=== PATIENT | male | born 1970 | race Two or more races ===

== ENCOUNTER 2020-09-30 16:35 | Emergency (ER) | payer OTHER, SELFPAY ==
--- NOTE | ~2020-09-30 | CT_ITS ---
EXAMINATION: CT ABDOMEN AND PELVIS WITHOUT CONTRAST CLINICAL INFORMATION: Left flank pain. Hematuria. COVID positive COMPARISON: None. TECHNIQUE: Multidetector volumetric imaging was performed from the lung bases through the pubic symphysis. Sagittal and coronal reformatted images were obtained on the technologist workstation. This CT examination was performed using dose optimization techniques as appropriate, variously including the following: *Automated exposure control *Adjustment of mA and/or kV according to patient size (this includes techniques or standardized protocols for targeted exams where dose is matched to indication/reason for exam; i.e. extremities or head) *Use of iterative reconstruction technique FINDINGS: The lack of intravenous contrast limits evaluation of the solid visceral organs including the liver, spleen, pancreas, and kidneys. LUNG BASES: The visualized lung bases are unremarkable. LIVER, GALLBLADDER, AND BILIARY TREE: Limited non-contrast evaluation is normal. No gross focal hepatic lesion. Normal liver size and contour. No gross biliary ductal dilation. The gallbladder is unremarkable with no evidence of radiopaque gallstones, gallbladder wall thickening, or obvious pericholecystic inflammatory changes. PANCREAS: Limited non-contrast evaluation is normal. No alex-pancreatic fluid. SPLEEN: Limited non-contrast evaluation is normal. ADRENAL GLANDS: Normal; no adrenal mass. KIDNEYS AND URETERS: There is a nonobstructing 2 to 3 mm right lower pole calculus. There is a punctate 1 mm nonobstructing left mid renal calculus in image 26. There is mild hydroureteronephrosis followed to a 5 mm obstructing stone in the left proximal ureter in image 38/76 at the level of the L4 vertebral body. The calculus is visible on the document control clerk radiograph suggesting KUBs could utilized for outpatient urologic follow-up. GASTROINTESTINAL TRACT: Small bowel and colon are non-dilated. No bowel wall thickening. No pericolonic inflammatory changes to suggest colitis or diverticulitis. ABDOMINAL WALL: No hernia seen. LYMPH NODES: No pathologically enlarged lymph nodes in the abdomen or pelvis. VASCULAR: Normal caliber abdominal aorta. BLADDER: Unremarkable. PELVIC VISCERA: There are dystrophic calcifications in the prostate. OSSEOUS STRUCTURES: There is retrolisthesis of L5 on S1. No acute or suspicious osseous abnormality. Degenerative changes of the sacroiliac joints. CT/CT abdomen pelvis wo con IMPRESSION: 5 mm obstructing left proximal ureteral calculus results in mild right hydroureteronephrosis. Additional nonobstructing bilateral renal calculi are present as well.
[2020-09-30 17:11] VITALS: BP 123/75; PULSE 65; RESP 18; TEMP 36.9; O2SAT 97; BMI 19.8
[2020-09-30 17:48] LABS: Glucose Urine UA NEG (NEG); Leukocyte Esterase Urine NEG (NEG); Nitrite Urine NEG (NEG); Urine Blood NEG (NEG); Urine Ketones NEG (NEG); Urine Protein NEG (NEG-TRACE)
[2020-09-30 17:51] LABS: Appearance Urine CLEAR; Color Urine YELLOW
[2020-09-30 17:57] LABS: Bacteria Urine 1+ /LPF; RBC Urine 0-2 /HPF (0); Squamous Epithelial Cell Urine 1+ /LPF
--- NOTE | 2020-09-30 18:03 | ED.GENADULT ---
HPI - General Adult General Chief complaint: General Medical Stated complaint: covid+ Time Seen by Provider: 09/30/20 17:43 Source: patient Mode of arrival: ambulatory Limitations: no limitations History of Present Illness HPI narrative: 50-year-old male diagnosed COVID positive, with no significant past medical history presents with several days of left-sided flank pain. 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 He states the pain is sharp and aching, intermittent, and sometimes takes his breath away. He cannot get comfortable and feels best curled over. He has had intermittent fevers and chills, and is unsure if it is because of the left-sided flank pain or his COVID positive diagnosis. He does not report any palpitations, shortness of breath, abdominal distention, edema, incontinence, or diaphoresis. Onset (ago): week(s) (1) Location: left (Flank) Radiation: back Severity: moderate Severity scale (1-10): 7 Quality: stabbing and aching Pain Consistency: intermittent Relieving factors: none Exacerbating factors: movement Associated symptoms: fever/chills and malaise Treatments prior to arrival: other (Tylenol) Related Data Previous Rx's Medication Instructions Recorded levofloxacin 750 mg PO DAILY 5 Days #5 tab 09/30/20 oxycodone 5 mg PO Q6H PRN #10 tab 09/30/20 prednisone 20 mg PO DAILY 5 Days #5 tab 09/30/20 tamsulosin [Flomax] 0.4 mg PO DAILY #30 cap 09/30/20 Allergies Allergy/AdvReac Type Severity Reaction Status Date / Time No Known Allergies Allergy Unverified 04/06/20 16:13 Review of Systems Review of Systems: Constitutional: Positive Fever, positive Chills ENT/Mouth: No sore throat Eyes: No Eye Pain, No Swelling, No Redness Cardiovascular: No Chest Pain, No SOB Respiratory: No Cough, No Sputum, No Wheezing Gastrointestinal: positive Nausea, no Vomiting, No Diarrhea, positive abdominal pain Genitourinary: No Dysuria, no urinary frequency, positive Hematuria, positive Flank Pain, no hesitancy Musculoskeletal: No joint pain, No Myalgias Skin: No Skin Lesions, No rash Neuro: No Weakness, No Numbness, No Headache Psych: No Anxiety/Panic, No Depression Heme/Lymph: No Bruising, No Lymphadenopathy Endocrine: No Polyuria, No Polydipsia Yes all other systems are reviewed and are negative [facility] Past Medical History Attestation statement: The following information was validated with the patient. Source: old records reviewed Medical History COVID-19 Social History Social History Alcohol intake: never Smoking Status: Never smoker Use of substances other than those prescribed or required for medical reasons: Yes Substance Use Type: Marijuana Substance Use Frequency: Occasionally Advance Directives: No Advance Directives Information Provided: No Physical Exam Vital Signs: Vital Signs: Last Vital Signs Temp 97.9 F 09/30/20 19:20 Pulse 66 09/30/20 19:20 Resp 18 09/30/20 19:20 BP 144/90 H 09/30/20 19:20 Pulse Ox 100 09/30/20 19:20 Body Mass Index 19.8 Appearance: Alert. Oriented X3. Moderate distress. Eyes: Pupils equal, round and reactive to light. EOMI, sclera nonicteric ENT: Pharynx normal. Trachea midline, moist mucous membranes. Neck: Normal inspection. Neck supple. No JVD CVS: Normal heart rate and rhythm. Pulses normal. Chest wall tenderness to palpation on the left side. Respiratory: No respiratory distress. Lung sounds clear to auscultation all lobes. Abdomen: Soft and left lower quadrant abdominal tenderness, positive left-sided CVA tenderness. Skin: Skin warm and dry. Normal skin color. Normal skin turgor. Extremities: No lower extremity edema. Moves all extremities against resistance. Gait well balanced well coordinated. Neuro: No motor deficit. No sensory deficit. Cranial nerves 2-12 intact. No focal neural deficits. Course Course Course Narrative: 50-year-old male tested COVID positive presents with left-sided flank pain and hematuria for approximately [address] scan of abdomen and pelvis, as he does have some left-sided chest pain we will rule out ACS. Order CBC, Chem 7, and urinalysis. CT scan positive for bilateral renal stones, left-sided obstruction of a 5 mm stone with hydronephrosis. Urine bacteria is positive there are no nitrites or leukocyte esterase however based on patient's presentation I am concerned about infected stone. Will reach out to Urology. Discussing with Urology at 7:[address] scan, plan of care is to treat with p.o. antibiotics, opioids and have patient follow-up in the office on Friday. Consultations Consultation #1: elvi Time: 19:59 Medical Decision Making Differential Diagnosis Differential Diagnosis: Kidney stones, pyelonephritis, ACS, acute abdomen Medical Records Medical records reviewed: Yes I reviewed the patient's medical records. Lab Data Lab results reviewed: Yes I reviewed the patient's lab results. Result diagrams: 09/30/20 19:08 09/30/20 19:08 Labs: Lab Results 09/30/20 09/30/20 09/30/20 Range/Units 17:34 19:08 19:08 WBC 11.5 H (4.8-10.8) X10*3/uL RBC 4.46 L (4.60-5.80) X10*6/uL Hgb 13.9 L (14.0-18.0) g/dl Hct 40.3 L (42-52) % MCV 90.4 (80-98) fL MCH 31.2 (27.0-33.0) pg MCHC 34.5 (31.0-36.0) g/dl RDW 12.2 (11.0-16.0) % Plt Count 218 (160-400) X10*3/uL MPV 10.3 (9.4-12.4) fL Immature Gran % (Auto) 0.2 (0.0-0.4) % Neut % (Auto) 73.5 H (45-73) % Lymph % (Auto) 19.4 L (20-40) % [place] % (Auto) 5.6 (2-11) % Eos % (Auto) 1.0 (0-4) % Baso % (Auto) 0.3 (0-2) % Lymph # (Auto) 2.2 (1.2-4.9) X10*3/uL [place] # (Auto) 0.7 (0.1-1.2) X10*3/uL Eos # (Auto) 0.1 (0.0-0.4) X10*3/uL Baso # (Auto) 0.0 (0.0-0.2) X10*3/uL Abs Immat Gran (auto) 0.02 (0.00-0.03) X10*3/uL Absolute Neuts (auto) 8.5 H (2.0-8.3) X10*3/uL Absolute Nucleated RBC 0.000 (0.0-0.012) X10*3/uL Nucleated RBC % (auto) 0.0 (0.0-0.2) /100WBC PT 11.4 (10.8-13.0) SEC INR 1.0 (0.9-1.1) APTT 31.8 (24.1-38.0) SEC Sodium (135-145) mmol/L Potassium (3.3-5.1) mmol/L Chloride (96-108) mmol/L Carbon Dioxide (22-29) mmol/L Anion Gap (12-20) BUN (9-16) mg/dL Creatinine (0.5-1.4) mg/dL Estim Creat Clear Calc Estimated GFR Random Glucose (60-115) mg/dL Calcium (8.4-10.2) mg/dL Total Bilirubin (0.0-1.0) mg/dL Direct Bilirubin (0.0-0.5) mg/dL AST (5-37) U/L ALT (0-40) U/L Alkaline Phosphatase (39-117) U/L Troponin I High Sens (<3.5-35.0) ng/L Total Protein (6.5-8.0) g/dL Albumin (3.5-5.0) g/dL Lipase (8-78) U/L Urine Color YELLOW Urine Appearance CLEAR Urine pH 8.0 (5.0-8.0) Ur Specific [place] 1.020 (1.005-1.025) Urine Protein NEG (NEG-TRACE) MG/DL Urine Glucose (UA) NEG (NEG) MG/DL Urine Ketones NEG (NEG) MG/DL Urine Blood NEG (NEG) Urine Nitrite NEG (NEG) Ur Leukocyte Esterase NEG (NEG) Urine RBC 0-2 (0) /HPF Urine WBC 1-4 (0-4) /HPF Ur Squamous Epith Cells 1+ /LPF Urine Bacteria 1+ /LPF 09/30/20 09/30/20 Range/Units 19:08 19:08 WBC (4.8-10.8) X10*3/uL RBC (4.60-5.80) X10*6/uL Hgb (14.0-18.0) g/dl Hct (42-52) % MCV (80-98) fL MCH (27.0-33.0) pg MCHC (31.0-36.0) g/dl RDW (11.0-16.0) % Plt Count (160-400) X10*3/uL MPV (9.4-12.4) fL Immature Gran % (Auto) (0.0-0.4) % Neut % (Auto) (45-73) % Lymph % (Auto) (20-40) % [place] % (Auto) (2-11) % Eos % (Auto) (0-4) % Baso % (Auto) (0-2) % Lymph # (Auto) (1.2-4.9) X10*3/uL [place] # (Auto) (0.1-1.2) X10*3/uL Eos # (Auto) (0.0-0.4) X10*3/uL Baso # (Auto) (0.0-0.2) X10*3/uL Abs Immat Gran (auto) (0.00-0.03) X10*3/uL Absolute Neuts (auto) (2.0-8.3) X10*3/uL Absolute Nucleated RBC (0.0-0.012) X10*3/uL Nucleated RBC % (auto) (0.0-0.2) /100WBC PT (10.8-13.0) SEC INR (0.9-1.1) APTT (24.1-38.0) SEC Sodium 142 (135-145) mmol/L Potassium 4.5 (3.3-5.1) mmol/L Chloride 106 (96-108) mmol/L Carbon Dioxide 25 (22-29) mmol/L Anion Gap 16 (12-20) BUN 16 (9-16) mg/dL Creatinine 0.92 (0.5-1.4) mg/dL Estim Creat Clear Calc 73.3 Estimated GFR > 60 Random Glucose 99 (60-115) mg/dL Calcium 8.7 (8.4-10.2) mg/dL Total Bilirubin 0.7 (0.0-1.0) mg/dL Direct Bilirubin < 0.2 (0.0-0.5) mg/dL AST 17 (5-37) U/L ALT 7 (0-40) U/L Alkaline Phosphatase 72 (39-117) U/L Troponin I High Sens < 3.5 (<3.5-35.0) ng/L Total Protein 7.1 (6.5-8.0) g/dL Albumin 4.0 (3.5-5.0) g/dL Lipase 18 (8-78) U/L Urine Color Urine Appearance Urine pH (5.0-8.0) Ur Specific [place] (1.005-1.025) Urine Protein (NEG-TRACE) MG/DL Urine Glucose (UA) (NEG) MG/DL Urine Ketones (NEG) MG/DL Urine Blood (NEG) Urine Nitrite (NEG) Ur Leukocyte Esterase (NEG) Urine RBC (0) /HPF Urine WBC (0-4) /HPF Ur Squamous Epith Cells /LPF Urine Bacteria /LPF Imaging Data CT of abdomen and pelvis: Attestation: I personally reviewed and interpreted this imaging study as follows: Radiologist's impression: EXAMINATION: CT ABDOMEN AND PELVIS WITHOUT CONTRAST CLINICAL INFORMATION: Left flank pain. Hematuria. COVID positive COMPARISON: None. TECHNIQUE: Multidetector volumetric imaging was performed from the lung bases through the pubic symphysis. Sagittal and coronal reformatted images were obtained on the technologist workstation. This CT examination was performed using dose optimization techniques as appropriate, variously including the following: *Automated exposure control *Adjustment of mA and/or kV according to patient size (this includes techniques or standardized protocols for targeted exams where dose is matched to indication/reason for exam; i.e. extremities or head) *Use of iterative reconstruction technique FINDINGS: The lack of intravenous contrast limits evaluation of the solid visceral organs including the liver, spleen, pancreas, and kidneys. LUNG BASES: The visualized lung bases are unremarkable. LIVER, GALLBLADDER, AND BILIARY TREE: Limited non-contrast evaluation is normal. No gross focal hepatic lesion. Normal liver size and contour. No gross biliary ductal dilation. The gallbladder is unremarkable with no evidence of radiopaque gallstones, gallbladder wall thickening, or obvious pericholecystic inflammatory changes. PANCREAS: Limited non-contrast evaluation is normal. No alex-pancreatic fluid. SPLEEN: Limited non-contrast evaluation is normal. ADRENAL GLANDS: Normal; no adrenal mass. KIDNEYS AND URETERS: There is a nonobstructing 2 to 3 mm right lower pole calculus. There is a punctate 1 mm nonobstructing left mid renal calculus in image 26. There is mild hydroureteronephrosis followed to a 5 mm obstructing stone in the left proximal ureter in image 38/76 at the level of the L4 vertebral body. The calculus is visible on the water pollution control inspector radiograph suggesting KUBs could utilized for outpatient urologic follow-up. GASTROINTESTINAL TRACT: Small bowel and colon are non-dilated. No bowel wall thickening. No pericolonic inflammatory changes to suggest colitis or diverticulitis. ABDOMINAL WALL: No hernia seen. LYMPH NODES: No pathologically enlarged lymph nodes in the abdomen or pelvis. VASCULAR: Normal caliber abdominal aorta. BLADDER: Unremarkable. PELVIC VISCERA: There are dystrophic calcifications in the prostate. OSSEOUS STRUCTURES: There is retrolisthesis of L5 on S1. No acute or suspicious osseous abnormality. Degenerative changes of the sacroiliac joints. CT/CT abdomen pelvis wo con IMPRESSION: 5 mm obstructing left proximal ureteral calculus results in mild right hydroureteronephrosis. Additional nonobstructing bilateral renal calculi are present as well. ECG Data Attestation: I personally reviewed and interpreted this ECG as follows: Discharge Plan Discharge Clinical Impression: Kidney calculus, Hydronephrosis concurrent with and due to calculi of kidney and ureter, COVID-19 Patient Disposition: Home, Self-Care Instructions: Kidney Stones (ED), Narcotic Safety (ED), Hydronephrosis (ED), COVID-19 (Coronavirus Disease 2019) (ED) Additional Instructions: You were evaluated for left-sided flank pain. CT scan of the abdomen shows an obstructing stone to the left kidney with some hydronephrosis, which is swelling to the kidney. The right kidney does have some small kidney stones without obstruction. I am treating you with prednisone, Flomax, oxycodone and Levaquin. Prednisone is a steroid, it is used to decrease inflammation. Please take this for the next 5 days. I am treating you with Flomax, this medication opens the vessels to help kidney stones past. This medication can decrease blood pressure and cause dizziness. Use caution when changing positions. I am prescribing Levaquin this is an antibiotic. Please take this medication for the next 5 days. I am prescribing oxycodone, this medication is a narcotic and has high risk for addiction and abuse. Do not drive or operate machinery while taking this medication. This medication is constipating, use MiraLax and or Colace as needed for stool softening. Drink plenty of fluids. This medication can decrease reaction time, cause drowsiness, and increased risk for falls. Follow-up with urology on Friday, I discussed your case with Dr. Gtz and he is expecting her call. Thank you for choosing this emergency department for evaluation. Please follow-up with primary care physician as needed. Return to the emergency department for any new, concerning, or worsening symptoms. Prescriptions: New oxycodone 5 mg tablet 5 mg PO Q6H PRN (Reason: pain) Qty: 10 RF: 0 tamsulosin [Flomax] 0.4 mg capsule 0.4 mg PO DAILY Qty: 30 RF: 0 prednisone 20 mg tablet 20 mg PO DAILY 5 Days Qty: 5 RF: 0 levofloxacin 750 mg tablet 750 mg PO DAILY 5 Days Qty: 5 RF: 0 Referrals: Mahesh Gtz III, MD [Physician] - 2 days (Bilateral kidney stones) Interventions: ED Discharge Assessment Last Done: 09/30/20 20:51 Discharge Date/Time: 09/30/20 21:20
--- NOTE | 2020-09-30 18:35 | ECG_ITS ---
Test Reason : WEAKNESS Blood Pressure : / mmHG Vent. Rate : 066 BPM Atrial Rate : 066 BPM P-R Int : 160 ms QRS Dur : 076 ms QT Int : 394 ms P-R-T Axes : 072 027 036 degrees QTc Int : 413 ms Normal sinus rhythm Normal ECG When compared with ECG of 23-MAY-2012 14:56, No significant change was found Referred By: Lainey Jenkins Electronically Signed By:Grady Saleem
[2020-09-30] MEDS: Ketorolac Tromethamine 30 MG/ML VIAL IVPUSH (19:12)
[2020-09-30] MEDS: Morphine Sulfate 4 MG/ML CARTRIDGE IVPUSH (19:12)
[2020-09-30] MEDS: 0.9 % Sodium Chloride 1,000 ML 999 ML IVCONT (19:12)
[2020-09-30] MEDS: ondansetron HCL 4 MG/2 ML VIAL IVPUSH (19:13)
[2020-09-30 19:14] LABS: Basophils Percent Auto 0.3 % (0-2); Eosinophils Absolute Auto 0.1 X10*3/uL (0.0-0.4); Hematocrit 40.3 % (42-52); Hemoglobin 13.9 g/dl (14.0-18.0); Imm Gran Abs Auto 0.02 X10*3/uL (0.00-0.03); Imm Gran Pct Auto 0.2 % (0.0-0.4); Lymphocytes Absolute Auto 2.2 X10*3/uL (1.2-4.9); Lymphocytes Percent Auto 19.4 % (20-40); MANUAL DIFF FLAG NO; Mean Corpuscular HGB Conc 34.5 g/dl (31.0-36.0); Mean Corpuscular Hemoglobin 31.2 pg (27.0-33.0); Mean Corpuscular Volume 90.4 fL (80-98); Mean Platelet Volume 10.3 fL (9.4-12.4); Monocytes Absolute Auto 0.7 X10*3/uL (0.1-1.2); Monocytes Percent Auto 5.6 % (2-11); Neutrophils Absolute Auto 8.5 X10*3/uL (2.0-8.3); Neutrophils Percent Auto 73.5 % (45-73); Platelet Count 218 X10*3/uL (160-400); Red Blood Count 4.46 X10*6/uL (4.60-5.80); Red Cell Distribution Width 12.2 % (11.0-16.0); White Blood Count 11.5 X10*3/uL (4.8-10.8)
[2020-09-30 19:20] VITALS: BP 144/90; PULSE 66; RESP 18; TEMP 36.6; O2SAT 100
[2020-09-30 19:20] LABS: Prothrombin Time 11.4 SEC (10.8-13.0)
--- NOTE | 2020-09-30 19:21 | PC.NURSE ---
iv inserted, labs drawn, pt medicated per order
[2020-09-30 19:23] LABS: Partial Thromboplastin Time 31.8 SEC (24.1-38.0)
[2020-09-30 19:37] LABS: Troponin-I High Sensitivity < 3.5 ng/L (<3.5-35.0)
[2020-09-30 19:42] LABS: Alanine Aminotransferase 7 U/L (0-40); Alkaline Phosphatase 72 U/L (39-117); Anion Gap 16 (12-20); Aspartate Amino Transferase 17 U/L (5-37); Bilirubin Direct < 0.2 mg/dL (0.0-0.5); Bilirubin Total 0.7 mg/dL (0.0-1.0); Blood Urea Nitrogen 16 mg/dL (9-16); Calcium 8.7 mg/dL (8.4-10.2); Carbon Dioxide 25 mmol/L (22-29); Chloride 106 mmol/L (96-108); Creatinine Clr Calc Pharmacy 73.3; Estimated Glomerular Filt Rate > 60; Glucose Random 99 mg/dL (60-115); Lipase 18 U/L (8-78); Potassium 4.5 mmol/L (3.3-5.1); Sodium 142 mmol/L (135-145); Total Protein 7.1 g/dL (6.5-8.0)
[2020-09-30] MEDS: levoFLOXacin 750 MG TABLET PO (21:01)
[2020-09-30] MEDS: oxyCODONE HCl Immed Release 5 MG TABLET PO (21:01)
[2020-09-30] MEDS: predniSONE 20 MG TABLET PO (21:02)
[2020-09-30] MEDS: Tamsulosin HCL 0.4 MG CAPSULE PO (21:02)
--- NOTE | 2020-09-30 21:18 | PC.NURSE ---
patient medicated prior to discharge
== END 2020-09-30 21:20 | disposition home or self-care (01) ==
PROVIDERS: Nurse Practitioner Family; Emergency Provider Internal Medicine
DX: N13.2 Hydronephrosis with renal and ureteral calculous obstruction (principal); Z86.16 Personal history of COVID-19; F12.90 Cannabis use, unspecified, uncomplicated
CPT/HCPCS: 36415; 74176; 80048; 80076; 81001; 83690; 84484; 85025; 85610; 85730; 93005; 96361; 96374; 96375; 99284; J1885; J2270; J2405

== ENCOUNTER 2021-05-30 18:53 | Emergency (ER) | payer SELFPAY ==
--- NOTE | ~2021-05-30 | CT_ITS ---
EXAMINATION: CT ABDOMEN AND PELVIS WITHOUT CONTRAST CLINICAL INFORMATION: Left flank pain. COMPARISON: CT of the abdomen and pelvis done on 09/30/2020. TECHNIQUE: Multidetector volumetric imaging was performed from the superior aspect of the liver through the pubic symphysis. Sagittal and coronal reformatted images were obtained on the technologist's workstation. This CT examination was performed using dose optimization techniques as appropriate, variously including the following: *Automated exposure control *Adjustment of mA and/or kV according to patient size (this includes techniques or standardized protocols for targeted exams where dose is matched to indication/reason for exam; i.e. extremities or head) *Use of iterative reconstruction technique DLP: 268 mGy-cm FINDINGS: LUNG BASES: The visualized lung bases are unremarkable. LIVER, GALLBLADDER, AND BILIARY TREE: The liver is normal in size, shape, and attenuation. No focal hepatic lesion or biliary ductal dilatation is present. The gallbladder is unremarkable with no evidence of radiopaque gallstones, gallbladder wall thickening, or obvious pericholecystic inflammatory changes. PANCREAS: Unremarkable. SPLEEN: Unremarkable. ADRENAL GLANDS: Unremarkable. KIDNEYS AND URETERS: The right kidney is normal in size, shape, and attenuation. There is a stable 2 to 3 mm radiopaque nonobstructing calculus present within the inferior anterior calyx (267:4). Moderate left-sided hydroureteronephrosis is present secondary to an obstructing 0.5 cm radiopaque calculus seen at the level of the left-sided ala of the sacrum (372:4) which appears to have migrated inferiorly from prior location at the level of transverse process of L4 vertebral body seen on the study dated 09/30/2020. Additional 2 to 3 mm nonobstructing calculus is noted within the mid to posterior calyx of the left kidney (203:4), unchanged. No new additional calculi. BLADDER: Unremarkable. GASTROINTESTINAL TRACT: The small and large bowel are unremarkable. The appendix is unremarkable. ABDOMINAL WALL: No significant hernia is appreciated. LYMPH NODES: Normal. VASCULAR: Unremarkable. PELVIC VISCERA: The prostate shows central parenchymal dystrophic calcification, unchanged. No evidence of any free within the free air. No evidence of any pelvic lymphadenopathy. OSSEOUS STRUCTURES: Remarkable for indeterminate mixed density nonaggressive lesion seen within the left posterior iliac bone, measures approximately 2 cm at its maximum dimension, shows central radiodensity and peripheral radiolucency without any cortical destruction or soft tissue mass. No significant change since 09/30/2020. Mild diffuse osteopenia. CT/CT abdomen pelvis wo con IMPRESSION: 1. Solitary 2 to 3 mm nonobstructing radiopaque calculus is present within the inferior-anterior calyx of the right kidney, unchanged since prior study. 2. Moderate left-sided hydroureteronephrosis secondary to an obstructing 0.5 cm radiopaque calculus seen at the level of the mid part of the left ureter overlying the left-sided ala of the sacrum. When compared to prior study dated 09/30/2020, this calculus appears to have migrated inferiorly from prior location at the level of transverse processes of L4 vertebral body. Additional 2-3 mm nonobstructing calculus is also noted within the mid posterior calyx of the left kidney, unchanged. 3. The posterior superior part of the left iliac bone shows an indeterminate 2 cm maximum dimension mixed density nonaggressive osseous lesion, appear unchanged since 09/30/2020, not optimally characterized.
[2021-05-30 19:21] VITALS: BP 123/67; PULSE 74; RESP 16; TEMP 36.5; O2SAT 99; BMI 18.3
--- NOTE | 2021-05-30 19:45 | ED_ITS ---
HPI - Abdominal Pain General Chief Complaint: Abdominal Pain Stated Complaint: abd pain Time Seen by Provider: 05/30/21 19:41 Source: patient Mode of arrival: ambulatory Limitations: no limitations History of Present Illness HPI narrative: This is a 50 years old male with history of kidney stone presented to the emergency department with a chief complaint of left flank pain radiating to the groin, denies any MD elicited complaint: flank pain Pertinent past history: none Onset (ago): hour(s) (6) Pain Consistency: constant Location: L flank Severity: moderate Radiation: none Exacerbating factors: nothing Relieving factors: nothing Associated symptoms: denies other symptoms Related Data Previous Rx's Medication Instructions Recorded levofloxacin 750 mg tablet 750 mg PO DAILY 5 Days #5 tab 09/30/20 oxycodone 5 mg tablet 5 mg PO Q6H PRN #10 tab 09/30/20 prednisone 20 mg tablet 20 mg PO DAILY 5 Days #5 tab 09/30/20 tamsulosin 0.4 mg capsule (Flomax) 0.4 mg PO DAILY #30 cap 09/30/20 Allergies Allergy/AdvReac Type Severity Reaction Status Date / Time No Known Allergies Allergy Unverified 04/06/20 16:13 Review of Systems Review of Systems Yes all other systems are reviewed and are negative Constitutional: Reports no additional constitutional complaints Reports system reviewed and no additional complaints, except as documented Cardiovascular: Reports no additional cardiovascular complaints Respiratory: Reports no additional respiratory complaints Gastrointestinal: Reports nausea Musculoskeletal: Reports no additional musculoskeletal complaints Physical Exam Vital Signs: Vital Signs: Last Vital Signs Temp 98.5 F 05/30/21 20:42 Pulse 58 05/30/21 20:42 Resp 16 05/30/21 20:42 BP 119/65 05/30/21 20:42 Pulse Ox 99 05/30/21 20:42 Body Mass Index 18.3 Const: General: cooperative, alert and anxious Nutritional Appearance: well nourished HENMT: Head: Yes normal to inspection Face and sinus: Yes normal facial exam Mouth: Normal oral and palatal mucosa present Neck: Neck: Yes normal visual inspection and Yes full ROM Chest: Chest palpation & inspection: normal inspection of the chest Resp: Effort & Inspection: normal respiratory effort and able to speak in complete sentences Auscultation: clear to auscultation bilaterally Cardio: Jugular venous distension: no JVD Rate: regular rate Rhythm: regular rhythm GI: Inspection: Yes normal to inspection Palpation (GI): Soft to palpation, not firm, nontender and no guarding Skin: General skin exam: no rashes or lesions noted, elasticity normal, turgor normal and atrophy Lesions: no lesions Course Reevaluation(s) Reevaluation #1: he is feeling better,he is comfortable at this time,UA is pending ,will sign out to Dr Chambers . Include MDM - Abdominal Pain Lab Data Result diagrams: 05/30/21 20:04 05/30/21 20:04 Labs: Lab Results 05/30/21 05/30/21 05/30/21 Range/Units 20:04 20:04 20:22 WBC 14.7 H (4.8-10.8) X10*3/uL RBC 4.21 L (4.60-5.80) X10*6/uL Hgb 13.5 L (14.0-18.0) g/dl Hct 37.7 L (42.0-52.0) % MCV 89.5 (80.0-98.0) fL MCH 32.1 (27.0-33.0) pg MCHC 35.8 (31.0-36.0) g/dl RDW 12.8 (11.0-16.0) % Plt Count 216 (160-400) X10*3/uL MPV 10.0 (9.4-12.4) fL Immature Gran % (Auto) 0.2 (0.0-0.4) % Neut % (Auto) 81.7 H (45-73) % Lymph % (Auto) 13.9 L (20-40) % [place] % (Auto) 3.7 (2-11) % Eos % (Auto) 0.2 (0-4) % Baso % (Auto) 0.3 (0-2) % Lymph # (Auto) 2.0 (1.2-4.9) X10*3/uL [place] # (Auto) 0.5 (0.1-1.2) X10*3/uL Eos # (Auto) 0.0 (0.0-0.4) X10*3/uL Baso # (Auto) 0.1 (0.0-0.2) X10*3/uL Abs Immat Gran (auto) 0.03 (0.00-0.03) X10*3/uL Absolute Neuts (auto) 12.0 H (2.0-8.3) x10*3/uL Absolute Nucleated RBC 0.000 (0.0-0.012) X10*3/uL Nucleated RBC % (auto) 0.0 (0.0-0.2) /100WBC Sodium 141 (135-145) mmol/L Potassium 4.0 (3.3-5.1) mmol/L Chloride 106 (96-108) mmol/L Carbon Dioxide 24 (22-29) mmol/L Anion Gap 15 (12-20) BUN 16 (9-16) mg/dL Creatinine 0.83 (0.5-1.4) mg/dL Estim Creat Clear Calc 75.1 Estimated GFR > 60 Random Glucose 127 H (60-115) mg/dL Calcium 9.6 D (8.4-10.2) mg/dL Total Bilirubin 1.2 H (0.0-1.0) mg/dL AST 17 (5-37) U/L ALT 15 (0-40) U/L Alkaline Phosphatase 65 (39-117) U/L Total Protein 7.1 (6.5-8.0) g/dL Albumin 4.4 (3.5-5.0) g/dL Lipase 16 (8-78) U/L Urine Color YELLOW Urine Appearance HAZY Urine pH 6.0 (5.0-8.0) Ur Specific [place] 1.020 (1.005-1.025) Urine Protein 1+ H (NEG-TRACE) MG/DL Urine Glucose (UA) NEG (NEG) MG/DL Urine Ketones 15 (NEG) MG/DL Urine Blood 3+ H (NEG) Urine Nitrite NEG (NEG) Ur Leukocyte Esterase NEG (NEG) Urine RBC 50-75 H (0) /HPF Urine WBC 0-2 (0-4) /HPF Ur Squamous Epith Cells TRACE /LPF Urine Bacteria TRACE /LPF Urine Mucus TRACE /LPF Discharge Plan Discharge Clinical Impression: Acute left flank pain, Renal colic on left side Patient Disposition: Home, Self-Care Prescriptions: No Action oxycodone 5 mg tablet 5 mg PO Q6H PRN (Reason: pain) Qty: 10 RF: 0 tamsulosin [Flomax] 0.4 mg capsule 0.4 mg PO DAILY Qty: 30 RF: 0 prednisone 20 mg tablet 20 mg PO DAILY 5 Days Qty: 5 RF: 0 levofloxacin 750 mg tablet 750 mg PO DAILY 5 Days Qty: 5 RF: 0 PMFSH Past Medical History Medical History COVID-19 Social History Social History Alcohol intake: never Substance Use Type: Marijuana Advance Directives: No Advance Directives Information Provided: Yes
[2021-05-30 20:09] LABS: MANUAL DIFF FLAG NO
[2021-05-30 20:10] LABS: Basophils Absolute Auto 0.1 X10*3/uL (0.0-0.2); Basophils Percent Auto 0.3 % (0-2); Eosinophils Percent Auto 0.2 % (0-4); Hematocrit 37.7 % (42.0-52.0); Hemoglobin 13.5 g/dl (14.0-18.0); Imm Gran Abs Auto 0.03 X10*3/uL (0.00-0.03); Imm Gran Pct Auto 0.2 % (0.0-0.4); Lymphocytes Percent Auto 13.9 % (20-40); Mean Corpuscular HGB Conc 35.8 g/dl (31.0-36.0); Mean Corpuscular Hemoglobin 32.1 pg (27.0-33.0); Mean Corpuscular Volume 89.5 fL (80.0-98.0); Monocytes Absolute Auto 0.5 X10*3/uL (0.1-1.2); Monocytes Percent Auto 3.7 % (2-11); Neutrophils Percent Auto 81.7 % (45-73); Platelet Count 216 X10*3/uL (160-400); Red Blood Count 4.21 X10*6/uL (4.60-5.80); Red Cell Distribution Width 12.8 % (11.0-16.0); White Blood Count 14.7 X10*3/uL (4.8-10.8)
[2021-05-30] MEDS: 0.9 % Sodium Chloride 1,000 ML 999 ML IVCONT (20:18)
[2021-05-30] MEDS: Ketorolac Tromethamine 15 MG/ML VIAL IVPUSH (20:18)
[2021-05-30 20:25] LABS: Alanine Aminotransferase 15 U/L (0-40); Albumin Level 4.4 g/dL (3.5-5.0); Alkaline Phosphatase 65 U/L (39-117); Anion Gap 15 (12-20); Aspartate Amino Transferase 17 U/L (5-37); Bilirubin Total 1.2 mg/dL (0.0-1.0); Blood Urea Nitrogen 16 mg/dL (9-16); Calcium 9.6 mg/dL (8.4-10.2); Carbon Dioxide 24 mmol/L (22-29); Chloride 106 mmol/L (96-108); Creatinine Clr Calc Pharmacy 75.1; Estimated Glomerular Filt Rate > 60; Glucose Random 127 mg/dL (60-115); Lipase 16 U/L (8-78); Sodium 141 mmol/L (135-145); Total Protein 7.1 g/dL (6.5-8.0)
[2021-05-30 20:34] LABS: Appearance Urine HAZY; Color Urine YELLOW; Glucose Urine UA NEG (NEG); Leukocyte Esterase Urine NEG (NEG); Nitrite Urine NEG (NEG); UACC Culture Trigger NO; Urine Blood 3+ (NEG); Urine Ketones 15 MG/DL (NEG); Urine Protein 1+ MG/DL (NEG-TRACE)
[2021-05-30 20:42] VITALS: BP 119/65; PULSE 58; RESP 16; TEMP 36.9; O2SAT 99
[2021-05-30 20:42] LABS: Bacteria Urine TRACE /LPF; Mucus Urine TRACE /LPF; RBC Urine 50-75 /HPF (0); Squamous Epithelial Cell Urine TRACE /LPF; WBC Urine 0-2 /HPF (0-4)
[2021-05-30] MEDS: cefTRIAXone sodium 1 GM in 0.9 % Sodium Chloride 50 ML IV (21:30)
[2021-05-30] MEDS: 0.9 % Sodium Chloride 1,000 ML 999 ML IV (21:32)
[2021-05-30 21:33] VITALS: RESP 16
[2021-05-30 22:20] VITALS: BP 99/59; PULSE 75
[2021-05-30 23:03] VITALS: BP 109/55; PULSE 80; RESP 16; TEMP 37.1; O2SAT 100
== END 2021-05-30 23:00 | disposition home or self-care (01) ==
PROVIDERS: Emergency Medicine; Emergency Provider Student in an Organized Health Care Education/Training Program
DX: N23 Unspecified renal colic (principal)
CPT/HCPCS: 36415; 74176; 80053; 81001; 83690; 85025; 96361; 96374; 96375; 99284; J0696; J1885

== ENCOUNTER 2022-01-29 10:46 | Outpatient (REF) | payer SELFPAY ==
--- NOTE | ~2022-01-29 | XR_ITS ---
EXAMINATION: XR HAND, LEFT CLINICAL INFORMATION: M79.642 - Pain in left hand COMPARISON: None TECHNIQUE: AP view left hand is performed along with 3 views of the left. FINDINGS: No acute or healing fracture, dislocation, destructive process. Normal bony mineralization. No periostitis. No focal joint narrowing or erosive changes. XR/XR hand LT min 3V IMPRESSION: Unremarkable hand and thumb.
== END 2022-01-29 10:47 | disposition home or self-care (01) ==
LOC: HO.HOSX 10:46
PROVIDERS: Visit Provider Orthopaedic Surgery
DX: M79.642 Pain in left hand (principal)
CPT/HCPCS: 73130

== ENCOUNTER 2022-03-01 12:46 | Outpatient (REF) | payer OTHER, SELFPAY ==
--- NOTE | ~2022-03-01 | XR_ITS ---
EXAMINATION: XR WRIST, LEFT CLINICAL INFORMATION: Pain left wrist, M25.532. COMPARISON: Radiographs left hand 01/29/2022. TECHNIQUE: Left wrist is imaged in 4 views. FINDINGS: Normal bony mineralization. No acute or healing fracture, dislocation, destructive process. Pronator quadratus fat pad normal. Ulnar variance is neutral. No carpal joint narrowing or erosive change or chondrocalcinosis. There is small exostosis medial base first metacarpal. XR/XR wrist LT w scaphoid IMPRESSION: -No focal joint narrowing or erosive changes. -Small spur/exostosis medial base first metacarpal.
== END 2022-03-01 12:47 | disposition home or self-care (01) ==
LOC: HO.HOSX 12:46
PROVIDERS: Visit Provider Physician Assistant
DX: M25.532 Pain in left wrist (principal)
CPT/HCPCS: 73110

== ENCOUNTER 2024-09-02 08:30 | Outpatient (REF) | payer OTHER, SELFPAY ==
[2024-09-02 14:11] LABS: MANUAL DIFF FLAG NO
[2024-09-02 14:17] LABS: Basophils Absolute Auto 0.1 X10*3/uL (0.0-0.2); Basophils Percent Auto 0.9 % (0-2); Eosinophils Absolute Auto 0.1 X10*3/uL (0.0-0.4); Eosinophils Percent Auto 1.5 % (0-4); Hematocrit 42.7 % (42.0-52.0); Hemoglobin 14.6 g/dl (14.0-18.0); Imm Gran Abs Auto 0.01 X10*3/uL (0.00-0.03); Imm Gran Pct Auto 0.2 % (0.0-0.4); Lymphocytes Absolute Auto 2.2 X10*3/uL (1.2-4.9); Lymphocytes Percent Auto 42.1 % (20-40); Mean Corpuscular HGB Conc 34.2 g/dl (31.0-36.0); Mean Corpuscular Hemoglobin 31.3 pg (27.0-33.0); Mean Corpuscular Volume 91.6 fL (80.0-98.0); Mean Platelet Volume 10.4 fL (9.4-12.4); Monocytes Absolute Auto 0.3 X10*3/uL (0.1-1.2); Monocytes Percent Auto 5.6 % (2-11); Neutrophils Absolute Auto 2.6 x10*3/uL (2.0-8.3); Neutrophils Percent Auto 49.7 % (45-73); Platelet Count 250 X10*3/uL (160-400); Red Blood Count 4.66 X10*6/uL (4.60-5.80); Red Cell Distribution Width 12.9 % (11.0-16.0); White Blood Count 5.3 X10*3/uL (4.8-10.8)
[2024-09-02 14:25] LABS: Estimated Average Glucose 108 mg/dL; Hemoglobin A1C 134.0109 umol/L; Hemoglobin A1c % 5.4 % (<6.0)
[2024-09-02 14:51] LABS: PSA,Total (Free>4and<10) 1.25 ng/mL (0.00-4.00)
[2024-09-02 14:55] LABS: Alanine Aminotransferase 13 U/L (0-40); Albumin Level 4.1 g/dL (3.5-5.0); Alkaline Phosphatase 68 U/L (39-117); Anion Gap 10 (12-20); Aspartate Amino Transferase 22 U/L (5-37); Bilirubin Total 1.2 mg/dL (0.0-1.0); Blood Urea Nitrogen 12 mg/dL (9-16); Calcium 9.4 mg/dL (8.4-10.2); Carbon Dioxide 28 mmol/L (22-29); Chloride 106 mmol/L (96-108); Cholesterol 219 mg/dL (<200); Estimated Glomerular Filt Rate > 60; Glucose Random 92 mg/dL (60-115); HDL Cholesterol 57 mg/dL (>40); LDL Cholesterol Calculated 147 mg/dL (<100); Potassium 4.4 mmol/L (3.3-5.1); Sodium 140 mmol/L (135-145); Triglycerides 79 mg/dL (<150)
[2024-09-03 07:54] LABS: HIV AB/AG Nonreactive (Nonreactive); HIV Num 1 0.06 S/CO (0.00-0.99); ~Hepatitis C Antibody Nonreactive (Nonreactive)
== END 2024-09-02 08:31 | disposition home or self-care (01) ==
LOC: HO.CHCLDS 08:30
PROVIDERS: Visit Provider Internal Medicine
DX: Z00.00 Encounter for general adult medical examination without abnormal findings (principal); Z12.5 Encounter for screening for malignant neoplasm of prostate
CPT/HCPCS: 36415; 80053; 80061; 83036; 84153; 84443; 85025; 86803; 87389

== ENCOUNTER 2024-11-03 11:03 | Outpatient (AMB) | payer OTHER, SELFPAY ==
[2024-11-03 11:03] VITALS: BP 122/58; PULSE 68; O2SAT 99; BMI 19.3
--- NOTE | 2024-11-03 11:03 | MHC.OFFVIS ---
Vital Signs 11/03/24 11:03 Height 5 ft 5 in Weight 116 lb 4 oz BMI 19.3 BP 122/58 L Blood Pressure Location Rt brachial Position Sitting Pulse 68 Pulse Source Pulse Oximeter Pulse Oximetry (%) 99 Oxygen Delivery Method Room Air Intake Visit Reasons: Ethel screening Intake Note: NEW PATIENT for initial colo screening. Chief Complaint; Pt denies any sx or concerns at this time. No pertinent FMHx. [employer] Member Required: No Accompanied by: Self / Same As Patient Allergies No Known Allergies Allergy (Unverified 11/03/24 11:04) HPI HPI Ethel screening: Details: 54 year old? male with no significant past medical history is here today for pre colonoscopy screening.? Patient was sent to us by his PCP.? This is his first colonoscopy screening.? Patient denies any gastrointestinal symptoms in the past or at present.? Denies any personal or family history of gastrointestinal disease, colon polyps, or CRC.? Denies history of difficulty with sedation or anesthesia in the past.? Negative for history of sleep apnea.? Denies any history of cardiac, renal, pulmonary, or hepatic disease.?? No history of infectious? diseases like hepatitis A, B, C, HIV or tuberculosis.? Patient is not on any anticoagulation [facility] Medical History COVID-19 Social History (Updated 11/03/24 @ 11:13 by SHERI Montes) Alcohol intake: never Patient Tobacco Use Status: Former Tobacco user Substance Use Type: Marijuana Current occupational status: employed Current occupation: [employer] Review of Systems Const Denies weight gain and Denies weight loss ENT Reports no additional complaints, Denies dysphagia and Denies odynophagia Card Reports no additional complaints Resp Reports no additional complaints GI Denies abdominal pain, Denies belching, Denies melena, Denies bloating, Denies change in bowel habits, Denies dysphagia, Denies excessive flatus, Denies dyspepsia, Denies heartburn, Denies diarrhea, Denies loose stools, Denies nausea, Denies odynophagia and Denies vomiting Reports no additional complaints Musc Reports no additional complaints Neuro Reports no additional complaints Psych Reports no additional complaints Endo Reports no additional complaints Physical Exam Vital Signs: Last Vital Signs Pulse 68 11/03/24 11:03 BP 122/58 L 11/03/24 11:03 Pulse Ox 99 11/03/24 11:03 Oxygen Delivery Method Room Air 11/03/24 11:03 BMI result Body Mass Index 19.3 Const General: healthy appearing, no acute distress and well developed Nutritional Appearance: well nourished Orientation/consciousness: patient oriented x3 Resp Effort & Inspection: normal respiratory effort, able to speak in complete sentences, no tracheal deviation and symmetric chest movement Auscultation: clear to auscultation bilaterally Cardio Rate: regular rate GI Inspection: Yes normal to inspection and No distended Palpation (GI): Soft to palpation, not firm, nontender and No hepatosplenomegaly present Auscultation: normal bowel sounds General: Yes no CVA tenderness Back/Spine/Pelvis Back: no CVA tenderness Skin General skin exam: elasticity normal, turgor normal and dry skin Neuro General: patient oriented x3 Psych Appearance: grossly normal Mental Status: mental status grossly normal Assessment & Plan Assessment & Plan (1) Screen for colon cancer: Code(s): Z12.11 - Encounter for screening for malignant neoplasm of colon Plan Patient denies any GI, cardiac or respiratory symptoms.? Denies any issues with anesthesia in the past.? Denies any history of sleep apnea.? No history infectious diseases in the past or present.? Not on any anticoagulation therapy.? No family or personal history of colon cancer or polyps.? Patient denies melena, hematochezia, unintentional weight loss or ribbon like stools.? Discussed at length the pre-procedure,? prep, diet & medications as well as what to expect prior, during and after the procedure.?? Stressed the importance of good bowel prep.? Recommended the use of Vaseline or Calmoseptine OTC & baby wipes with bowel movements to promote comfort.? ?Patient verbalizes understanding and agrees to plan of care.? He was given the opportunity to ask questions and all questions answered.? We will see him after the procedure.? Medications: New bisacodyl (Dulcolax (bisacodyl)) take 4 tabs at noon the day before your colonoscopy 20 mg (4 x 5 mg) PO ONCE 1 day 4 tabs 0RF Z12.11 - Encounter for screening for malignant neoplasm of colon polyethylene glycol 3350 (Miralax) As directed by gastroenterology department at [facility] 238 grams PO ONCE 238 grams 0RF Z12.11 - Encounter for screening for malignant neoplasm of colon Coding Level of Care Code New Pt Level 3 (16861) Diagnoses Screen for colon cancer Z12.11 Time Spent (min) 40 Comment 30 minutes spent with patient and additional 10 minute spent reviewing his records
--- OUTSIDE RECORDS SUMMARY | 2024-11-03 13:15 | XMS_ITS | Encounter Summary ---
Author Organization [employer] Address [address] [place] [address] Care Team Providers Care Broadloom Weaver Name Role Phone Douglas Ward MD Primary Care Prov ider Reason for Visit * Reason Onset Date Comments new patient visit 05/21/2024 Encounter Details Date Type Department Care Team (Late st Contact Info) Description 05/21/2024 Telephone [facility] [address], [place] [phone] Douglas Ward MD [address], [place] [phone] new patient visit Social History Tobacco Use Types Packs/Day Years Used Date Smoking Tobacco: Never Assessed Sex and Gender Information Value Date Recorded Sex Assigned at Male 05/20/2022 10:18 AM EDT Legal Sex Male 10:18 AM EDT Gender Identity Male 05/20/2022 10:18 AM EDT Sexual Orientation Straight 05/20/2022 10 :18 AM EDT documented as of this encounter Miscellaneous Notes * Telephone Encounter - Edgar Hewitt - 05/21/2024 3:46 PM EDT TC placed to patient for scheduling of new patient visit. Agreed to 06/[address] Kelly NO Medical Condition Apptmnt reminder and release form sent via mail . documented in this encounter Plan of Treatment Upcoming Encounters Date Type Department Care Team (Late st Contact Info) Description 12/30/2024 10:15 AM EDT Office Visit [facility] [address] [place], [place] [phone] Douglas Ward MD [address] [place] [address] documented as of this encounter Visit Diagnoses Not on filedocumented in this encounter Care Teams Broadloom Weaver Relationship Specialty Start Date End Date Douglas Ward MD [address] [place] [address] PCP - General Internal Medicine 06/09/24 documented as of this encounter
--- OUTSIDE RECORDS SUMMARY | 2024-11-03 13:15 | XMS_ITS | Clinical Summary ---
Author Organization [employer] Address [address] [facility] [address] [place] [address] Care Team Providers Care Convict Guard Name Role Phone Douglas Ward MD Primary Care Prov ider Allergies No known active allergies Medications cyclobenzaprine (Flexeril) 10 MG tablet Take 1 tablet (10 mg) by mouth 3 times daily for 10 days. 30 tablet 10/06/2024 Active Active Problems Problem Noted Date Diagnosed Date Neck pain 10/06/2024 Assessment & Plan (10/06/2024 1:26 PM EDT): Will provide cyclobenzaprine, told to rest, apply cold packs, tke tylenol/NSAID as needed, will order a xray and refer to PT Encounter for medical examination to establish c are 06/09/2024 Assessment & Plan (06/09/2024 11:06 AM EST): Never has followed with a pcp No hx of hospitalization Er vist: arm pulled muscle 3 months ago Pmhx- Pshx:- All:- Med:- Screening for colon cancer 06/09/2024 Assessment & Plan (06/09/2024 11:06 AM EST): Will refer for screening colonoscopy Screening for prostate cancer 06/09/2024 Assessment & Plan (06/09/2024 11:07 AM EST): Will send PSA Encounters Date Type Department Care Team Description 10/06/2024 9:15 AM EDT Office Visit [facility] [address] [place] [address] Douglas Ward MD Neck pain (Primary Dx); Encounter for immunization 10/06/2024 Travel 09/29/2024 Patient Outreach [facility] [address] [place] [address] Douglas Ward MD Pre-visit Planning (SDOH unable to reach [facility]) 09/01/2024 8:30 AM EST Office Visit [facility] [address] [place] [address] Douglas Ward MD Encounter for medical examination to establish care (Primary Dx); Acute non intractable tension-type headache 09/01/2024 Travel 08/31/2024 Telephone [facility] [address] [place] [phone] Douglas Ward MD Chart Prep 08/16/2024 Patient Outreach [facility] [address] [place] [address] Douglas Ward MD Pre-visit Planning (SDOH negative. Tobacco screening negative. ) from Last 3 Months Immunizations Name Administration Dates Next Due Influenza, seasonal, injectable, preservative fr ee 10/06/2024 Moderna Covid-19 Vaccine 6+ Bivalent 07/10/2022 Tdap 10/06/2024 Family History Medical History Relation Name Comments No Known Problems Father Dementia Mother Cancer Neg Hx Relation Name Status Comments Father Mother Social History Tobacco Use Types Packs/Day Years Used Date Smoking Tobacco: Never Smokeless Tobacco: Never Tobacco Cessation:Counseling Given: Not Answered Alcohol Use Standard Drinks/Week Comments Never 0 (1 standard drink = 0.6 oz pur e alcohol) Depression Answer Date Recorded Patient Health Questionnaire-9 Score 0 10/06/2024 Patient Health Questionnaire-9 Score 0 10/06/2024 Last PHQ-9: Questionnaire Data Not on file 0 10/06/2024 Housing Stability Answer Date Recorded What is your housing situation today? I have yesica reynolds 08/16/[address] you li ve. Do you have problems with any of the following? None of the above 08/16/2024 Food Insecurity Answer Date Recorded Within the past 12 months, y ou worried that your food would run out before you got money to buy more: Never True 08/16/2024 Within the past 12 months,th e food you bought just didn't last and you didn't have enough money to get more: Never True Transportation Answer Date Recorded In the past 12 months, has l ack of transportation kept you from medical appts, meetings, work or from getting things needed for daily living? No 08/16/2024 Utilities Answer Date Recorded In the past 12 months, has t he electric, gas, oil or water company threatened to shut off services in your home? No 08/16/2024 Depression Answer Date Recorded Patient Health Questionnaire-2 Score 0 10/06/2024 Internet Access Answer Date Recorded Internet Access Q1 Yes 08/16/2024 Internet Access Q2 Not on file 08/16/2024 Sex and Gender Information Value Date Recorded Sex Assigned at Male 05/20/2022 10:18 AM EDT Legal Sex Male 10:18 AM EDT Gender Identity Male 05/20/2022 10:18 AM EDT Sexual Orientation Straight 05/20/2022 10 :18 AM EDT Last Filed Vital Signs Vital Sign Reading Time Taken Comments Blood Pressure 122/70 10/06/2024 9:08 AM EDT Pulse 72 10/06/2024 9:08 AM EDT Temperature 36.9 ??C (98.4 ??F) 10/06/2024 9:08 AM ED T Respiratory Rate 20 10/06/2024 9:08 AM EDT Oxygen Saturation 98% 09/01/2024 8:49 AM EST Inhaled Oxygen Concentration - - Weight 51.3 kg (113 lb) 10/06/2024 9:08 AM EDT Height 165.1 cm (5' 5 ) 10/06/2024 9:08 AM EDT Body Mass Index 18.8 10/06/2024 9:08 AM EDT Plan of Treatment Upcoming Encounters Date Type Department Care Team (Late st Contact Info) Description 12/30/2024 10:15 AM EDT Office Visit [facility] [address] [place], [place] [phone] Douglas Ward MD [address] [place], [place] [phone] Health Maintenance Due Date Last Done Comments CT Colonography 1970 Colonoscopy 1970 Colorectal Cancer Screening 1970 FIT DNA/Cologuard 1970 FIT 1970 FOBT 1970 Sigmoidoscopy 1970 Hepatitis B Vaccines (1 of 3 - 19+ 3-dose series) 1989 Pneumococcal Vaccine: 50+ Years (1 of 1 - PCV) 2020 Zoster Vaccines (1 of 2) 2020 COVID-19 Vaccine (2 - 2023-2 5 season) 2024 07/10/2022 Tobacco Screening 06/09/2025 06/09/2024 SDOH Screening 08/16/2025 08/16/2024 Alcohol/Substance Use Screening 10/06/2025 10/06/2024 Depression Screening 10/06/2025 10/06/2024, 10/06/2024 Lipid Panel 09/02/2029 09/02/2024 DTaP/Tdap/Td Vaccines (2 - T d or Tdap) 10/06/2034 10/06/2024 RSV Patients and Patients Aged 60 years or older (1 - 1-dose 75+ series) 2045 HIV Screening Completed 09/02/2024 Hepatitis C Screening Completed 09/02/2024 Influenza Vaccine Completed 10/06/2024 HIB Vaccines Aged Out No longer eligi ble based on patient's age to complete this topic HPV Vaccines Aged Out No longer eligi ble based on patient's age to complete this topic Hepatitis A Vaccines Aged Out No long er eligible based on patient's age to complete this topic IPV Vaccines Aged Out No longer eligi ble based on patient's age to complete this topic Meningococcal Vaccine Aged Out No mallorie silvia eligible based on patient's age to complete this topic RSV under 20 months Aged Out No longe r eligible based on patient's age to complete this topic Rotavirus Vaccines Aged Out No longer eligible based on patient's age to complete this topic Procedures Procedure Name Priority Date/Time Associated Diagnosis Comments HEPATITIS C AB W/REFL TO HCV RNA, QN, PCR Routine 09/02/2024 8:35 AM EST Encounter for medical examination to establish care HIV 1/2 ANTIGEN/ANTIBODY, FOURTH GENERATION W/RFL Routine 09/02/2024 8:35 AM EST Encounter for medical examination to establish care PSA, TOTAL WITH REFLEX TO PSA, FREE Routine 09/02/2024 8:35 AM EST Encounter for medical examination to establish care Screening for prostate cancer HEMOGLOBIN A1C Routine 09/02/2024 8:35 AM EST Encounter for medical examination to establish care TSH W/REFLEX TO FT4 Routine 09/02/2024 8 :35 AM EST Encounter for medical examination to establish care LIPID PANEL, STANDARD Routine 09/02/2024 8:35 AM EST Encounter for medical examination to establish care COMPREHENSIVE METABOLIC PANEL Routine 09/02/2024 8:35 AM EST Encounter for medical examination to establish care CBC WITH AUTO DIFFERENTIAL Routine 09/02/2024 8:35 AM EST Encounter for medical examination to establish care from Last 3 Months Results * TSH W/Reflex to FT4 (09/02/2024 8:35 AM EST) TSH reflex Free T4 0.70 0.32 - 4.0 uIU/mL [facility] Blood Venous blood specimen / Unknown 09/02/2024 8:35 AM EST 09/02/2024 2:05 PM EST us Douglas Regan MD LAB BLOOD ORDERABL ES Final Result [facility] [address] [place] [phone] * PSA, Total With Reflex to PSA, Free (09/02/2024 8:35 AM EST) PSA,Total (Free>4and<10) 1.25 0.00 - 4.00 ng/mL [facility] Comment:A Free PSA was not p erformed: The percentage of Free PSA can be used to enhance the differentiation of prostate cancer from benign prostatic disease in subjects whose PSA levels are between 4.0 and 10.0 ng/mL. For subjects whose PSA levels are below 4.0 or above 10.0 ng/mL, the risk of prostate cancer is determined on the basis of the PSA alone. Therefore the % Free PSA is recommended only for those subjects whose PSA levels are between 4.0 and 10.0 ng/mL.PSA methodology: Tripsidea Alinity i ChemiluminescentMicroparticle Immunoassay (CMIA) 09/02/2024 8:35 AM EST 09/02/2024 2:05 PM EST Douglas Regan MD LAB BLOOD ORDERABL ES Final Result [facility] [address] [place] [phone] * (ABNORMAL) CBC auto differential (09/02/2024 8:35 AM EST) White Blood Count 5.3 4.8 - 10.8 X10*3/uL [facility] Red Blood Count 4.66 4.60 - 5.80 X10*6/uL [facility] Hemoglobin 14.6 14.0 - 18.0 g/dl [facility] Hematocrit 42.7 42.0 - 52.0 % [facility] Mean Corpuscular Volume 91.6 80.0 - 98.0 fL [facility] Mean Corpuscular Hemoglobin 31.3 27.0 - 33.0 pg [facility] Mean Corpuscular HGB Conc 34.2 31.0 - 36.0 g/dl [facility] Red Cell Distribution Width 12.9 11.0 - 16.0 % [facility] Platelet Count 250 160 - 400 X10*3/uL [facility] Mean Platelet Volume 10.4 9.4 - 12.4 fL [facility] Neutrophils Percent Auto 49.7 45 - 73 % [facility] Imm Gran Pct Auto 0.2 0.0 - 0.4 % [facility] Lymphocytes Percent Auto 42.1(H) 20 - 40 % [facility] Monocytes Percent Auto 5.6 2 - 11 % [facility] Eosinophils Percent Auto 1.5 0 - 4 % [facility] Basophils Percent Auto 0.9 0 - 2 % [facility] NRBC Pct Auto 0.0 0.0 - 0.2 /100WBC [facility] Neutrophils Absolute Auto 2.6 2.0 - 8.3 x10*3/uL [facility] Imm Gran Abs Auto 0.01 0.00 - 0.03 X10*3/uL [facility] Lymphocytes Absolute Auto 2.2 1.2 - 4.9 X10*3/uL [facility] Monocytes Absolute Auto 0.3 0.1 - 1.2 X10*3/uL [facility] Eosinophils Absolute Auto 0.1 0.0 - 0.4 X10*3/uL [facility] Basophils Absolute Auto 0.1 0.0 - 0.2 X10*3/uL [facility] NRBC Abs Auto 0.000 0.0 - 0.012 X10*3/uL [facility] Blood Venous blood specimen / Unknown 09/02/2024 8:35 AM EST 09/02/2024 2:05 PM EST Douglas Regan MD LAB BLOOD ORDERABL ES Final Result [facility] [address] [place] [phone] * Hepatitis C Antibody with Reflex to HCV, RNA, Quantitative, Real-Time PCR (09/02/2024 8:35 AM EST) Hepatitis C Antibody Nonreactive Nonreactive [facility] Comment:Antibodies to HCV no t detected; does not exclude early acuteHCV infection. Blood Venous blood specimen / Unknown 09/02/2024 8:35 AM EST 09/02/2024 2:05 PM EST us Douglas Regan MD LAB BLOOD ORDERABL ES Final Result Performing Organization Address [facility]/ZIP Co de Phone Number [facility] [address] [place] [phone] * HIV-1/2 Antigen and Antibodies, Fourth Generation, with Reflexes (09/02/2024 8:35 AM EST) HIV AB/AG Nonreactive Nonreactive [facility] Comment:HIV-1 p24 Ag and/or HIV-1/HIV-2 Ab not detected.A test result that is nonreactive does not exclude thepossibility of exposure to or infection with HIV-1 and/orHIV-2. Nonreactive results in this assay for individualswith prior exposure to HIV-1 and/or HIV-2 may be due toantigen and antibody levels that are below the limit ofdetection of this assay.The [employer] HIV Ag/Ab Combo assay result andsupplemental assay results should be interpreted inconjunction with the patient's clinical presentation,history and other laboratory results. If the results areinconsistent with clinical evidence, additional testing issuggested to confirm the result. Blood Venous blood specimen / Unknown 09/02/2024 8:35 AM EST 09/02/2024 2:05 PM EST us Douglas Regan MD LAB BLOOD ORDERABL ES Final Result Performing Organization Address [facility] Co de Phone Number [facility] [address] [place] [phone] * Hemoglobin A1c (09/02/2024 8:35 AM EST) Hemoglobin A1c 5.4 <6.0 % [facility] Comment:Hemoglobin A1C Refer ence Range Adults: 4.8 - 6.0 % Non diabetic: < 6.0 % Goal: < 7.0 %Additional Action Suggested: > 8.0 %Note: Hemoglobin A1c results are invalid for patients with abnormal amounts of HbF. Blood transfusions may impact the HbA1c concentration in the patient sample. Estimated Average Glucose 108 mg/dL [facility] Comment:eAG = Estimated ave rage glucose which is %A1C expressed asaverage glucose, using the formula of the T0B-KzfipjlZdynnht Glucose study (ADAG), Diabetes Care, Vol.31,#8,Feb. 2007 Blood Venous blood specimen / Unknown 09/02/2024 8:35 AM EST 09/02/2024 2:05 PM EST Douglas Regan MD LAB BLOOD ORDERABL ES Final Result Performing Organization Address [facility] de Phone Number [facility] [address] [place] [address] [phone] * (ABNORMAL) Lipid Panel, Standard (09/02/2024 8:35 AM EST) Triglycerides 79 <150 mg/dL [facility] Comment:Desirable Triglyceri de: less than 150 mg/dLBorderline High Triglyceride 150-199 mg/dLHigh Triglyceride: 200-499 mg/dLVery High Triglyceride: greater than or equal to 5OO mg/dL Cholesterol 219(H) <200 mg/dL [facility] Comment:Desirable Cholestero l: less than 200 mg/dLBorderline High Cholesterol: 200-239 mg/dLHigh Cholesterol: greater than 239 mg/dL LDL Cholesterol Calculated 147(H) <100 mg/dL [facility] Comment:Desirable LDL: less than 100 mg/dLNear Optimal/Above Optimal LDL: 110- 129 mg/dLBorderline High LDL: 130-159 mg/dLHigh LDL: 160-189 mg/dLVery High LDL: greater than or equal to 190 mg/dL HDL Cholesterol 57 >40 mg/dL [facility] Comment:Desirable HDL: great er than 40 mg/dL Note: This HDL assay may give artificially low results in patients with liver disease. Blood Venous blood specimen / Unknown 09/02/2024 8:35 AM EST 09/02/2024 2:05 PM EST us Douglas Regan MD LAB BLOOD ORDERABL ES Final Result Performing Organization Address City/[facility]/ZIP Co de Phone Number [facility] [address] [place] [phone] * (ABNORMAL) Comprehensive Metabolic Panel (09/02/2024 8:35 AM EST) Sodium 140 135 - 145 mmol/L [facility] Potassium 4.4 3.3 - 5.1 mmol/L [facility] Chloride 106 96 - 108 mmol/L [facility] Carbon Dioxide 28 22 - 29 mmol/L [facility] Anion Gap 10(L) 12 - 20 [facility] Urea Nitrogen (BUN) 12 9 - 16 mg/dL [facility] Creatinine, Serum 0.75 0.5 - 1.4 mg/dL [facility] Estimated Glomerular Filt Rate >60 [facility] Comment:Chronic Kidney Disea se: Estimated GFR < 60 mL/min/[id number] Kidney Disease: Estimated GFR < 15 mL/min/1.73m2 Glucose 92 60 - 115 mg/dL [facility] Calcium 9.4 8.4 - 10.2 mg/dL [facility] Bilirubin, Total 1.2(H) 0.0 - 1.0 mg/dL [facility] Aspartate Amino Transferase 22 5 - 37 U/L [facility] Alanine Aminotransferase 13 0 - 40 U/L [facility] Total Protein 7.0 6.5 - 8.0 g/dL [facility] Albumin Level 4.1 3.5 - 5.0 g/dL [facility] Alkaline Phosphatase 68 39 - 117 U/L [facility] Blood Venous blood specimen / Unknown 09/02/2024 8:35 AM EST 09/02/2024 2:05 PM EST us Douglas Regan MD LAB BLOOD ORDERABL ES Final Result Performing Organization Address City/[facility]/ZIP Co de Phone Number [facility] [address] [place] [phone] from Last 3 Months Insurance Care Teams Convict Guard Relationship Specialty Start Date End Date Douglas Ward MD [address] [place] [phone] PCP - General Internal Medicine 06/09/24
--- OUTSIDE RECORDS SUMMARY | 2024-11-03 13:15 | XMS_ITS | Clinical Summary ---
Author Organization [employer] [facility] ity Address [address] [place] [phone] Care Team Providers Care Wireline Operator Name Role Phone Unavailable Primary Care Provider Unavailabl e Social History Tobacco Use Types Packs/Day Years Used Date Smoking Tobacco: Never Assessed Sex and Gender Information Value Date Recorded Sex Assigned at Not on file Legal Sex Male 3:44 PM EDT Gender Identity Not on file Sexual Orientation Not on file Plan of Treatment Health Maintenance Due Date Last Done Comments DTaP,Tdap,and Td Vaccines (1 - Tdap) 1989 Hepatitis B Vaccines (1 of 3 - 19+ 3-dose series) 1989 Pneumococcal Vaccine: 50+ Ye ars (1 of 1 - PCV) 2020 Zoster Vaccines (1 of 2) 2020 COVID-19 Vaccine (1 - 2023-2 5 season) 2024 Cholesterol Screening (Lipid Panel) 04/29/2024 Colorectal Cancer Screening: Colonoscopy 04/29/2024 Depression Screening 04/29/2024 HIV Screening 04/29/2024 Hepatitis C Screening 04/29/2024 Social Influencers of Health Screening 04/29/2024 Influenza Vaccine (Season Ended) 2025 HIB Vaccines Aged Out No longer eligi [...] on patient's age to complete this topic MMR Vaccines Aged Out No longer eligi ble based on patient's age to complete this topic Meningococcal ACWY Vaccine Aged Out N o longer eligible based on patient's age to complete this topic Meningococcal B Vaccine Aged Out No l onger eligible based on patient's age to complete this topic Pneumococcal Vaccine: Pediat rics (0 to 5 Years) and At-Risk Patients (6 to 64 Years) Aged Out No longer eligible b ased on patient's age to complete this topic RSV Immunization Patients Un rebel 20 months Aged Out No longer eligible b ased on patient's age to complete this topic Varicella Vaccines Aged Out No longer eligible based on patient's age to complete this topic
== END 2024-11-03 11:42 | disposition home or self-care (01) ==
PROVIDERS: PCP Internal Medicine; Visit Provider Nurse Practitioner Family
DX: Z01.818 Encounter for other preprocedural examination (principal); Z12.11 Encounter for screening for malignant neoplasm of colon
CPT/HCPCS: 99202

== ENCOUNTER → 2024-11-03 11:03 | Outpatient (BNVA) | payer OTHER, SELFPAY | PROVIDERS: PCP Internal Medicine; Visit Provider Nurse Practitioner Family | DX: Z01.818 Encounter for other preprocedural examination (principal) | CPT/HCPCS: 99202 ==

== ENCOUNTER → 2025-02-23 18:35 | Outpatient (BNV) | payer OTHER, SELFPAY | PROVIDERS: Emergency Provider Emergency Medicine; PCP Internal Medicine; Visit Provider Radiology Diagnostic Radiology | DX: M47.812 Spondylosis without myelopathy or radiculopathy, cervical region (principal) | CPT/HCPCS: 72050 ==

== ENCOUNTER 2025-02-23 20:05 | Outpatient (REF) | payer OTHER, SELFPAY ==
--- NOTE | ~2025-02-23 | XR_ITS ---
EXAMINATION: XR CERVICAL SPINE CLINICAL INFORMATION: cervical neck pain COMPARISON: None available. TECHNIQUE: AP, oblique, lateral and atlantoodontoid views. FINDINGS: Craniocervical junction is intact. Small marginal osteophyte formation anterior inferior endplate of C4, C5 with a limbus vertebra. No acute cortical disruption or malalignment. Mild neuroforamina narrowing at C3-4, bilaterally on a degenerative basis. No lytic or blastic lesions. Upper airway is patent. XR/XR cervical spine 4V IMPRESSION: Mild spondylosis C4-5 and C5-6. Electronically signed by: Jethro Harris MD 02/24/2025 08:48 AM EDT
--- NOTE | 2025-02-23 18:51 | PC.NURSE ---
pt was not in the [facility] immediately after signing in, later an xray showed up ordered by PCP? I checked with xray na dthe ed xray did not take the xray but they thought that it was done in the main radiology dept and the pt was meant to be an outpatient
--- OUTSIDE RECORDS SUMMARY | 2025-02-24 11:36 | XMS_ITS | Clinical Summary ---
Author Organization [employer] [facility] ity Address [address] [place] [phone] Care Team Providers Care Mold Shaker Name Role Phone Unavailable Primary Care Provider [...] Panel) 04/29/2024 Colorectal Cancer Screening: Colonoscopy 04/29/2024 HIV Screening 04/29/2024 Hepatitis C Screening 04/29/2024 Social Influencers of Health Screening 04/29/2024 Depression Screening 07/21/2024 Influenza Vaccine (#1) 2025 HIB Vaccines Aged Out No longer [...]
--- OUTSIDE RECORDS SUMMARY | 2025-02-24 11:36 | XMS_ITS | Clinical Summary ---
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 I have yescia rodolfo 08/16/[address] you li [...] 72 10/06/2024 9:08 AM EDT Temperature 36.9 C (98.4 F) 10/06/2024 9:08 AM EDT Respiratory Rate 20 10/06/2024 9:08 AM EDT Oxygen Saturation 98% 09/01/2024 8:49 AM EST Inhaled Oxygen Concentration - - Weight 51.3 kg (113 lb) 10/06/2024 9:08 AM EDT Height 165.1 cm (5' 5 ) 10/06/2024 9:08 AM EDT Body Mass Index 18.8 10/06/2024 9:08 AM EDT Plan of Treatment Upcoming Encounters Date Type Department Care Team (Late st Contact Info) Description 03/04/2025 1:00 PM EDT Office Visit [facility] [address] [place], [place] [phone] Ellen Mathis NP [address] [place], [place] [phone] Health Maintenance Due Date Last Done Comments CT Colonography 1970 Colonoscopy 1970 Colorectal Cancer Screening 1970 FIT DNA/Cologuard 1970 FIT 1970 FOBT 1970 Sigmoidoscopy 1970 Disability Screening 1970 Hepatitis B Vaccines (1 of 3 - 19+ 3-dose series) 1989 Pneumococcal Vaccine: 50+ Years (1 of 1 - PCV) 2020 Zoster Vaccines (1 of 2) 2020 COVID-19 Vaccine (2023- season) 2024 07/10/2022, 07/31/2021, 01/03/2021, Additional history exists Influenza Vaccine (#1) 2025 10/06/2024 Tobacco Screening 06/09/2025 06/09/2024 SDOH Screening 08/16/2025 08/16/2024 Alcohol/Substance Use Screening 10/06/2025 10/06/2024 Depression Screening 10/06/2025 10/06/2024, 10/07/19 Lipid Panel 09/02/2029 09/02/2024 DTaP/Tdap/Td Vaccines (2 - Td or Tdap) 10/06/2034 10/06/2024 RSV Patients and Patients Aged 60 years or older (1 - 1-dose 75+ series) 2045 HIV Screening Completed 09/02/2024 Hepatitis C Screening Completed 09/02/2024 HIB Vaccines Aged Out No longer eligi [...] Procedure Name Priority Date/Time Associated Diagnosis Comments XR CERVICAL SPINE 4V Routine 02/23/2025 5:41 PM EDT Neck pain HEPATITIS C AB W/REFL TO HCV RNA, QN, PCR Routine 09/02/2024 8:35 AM EST Encounter for medical examination to establish care HIV 1/2 ANTIGEN/ANTIBODY, FOURTH GENERATION W/RFL Routine 09/02/2024 8:35 AM EST Encounter for medical examination to establish care LIPID PANEL, STANDARD Routine 09/02/2024 8:35 AM EST Encounter for medical examination to establish care from Last 3 Months or Most Recently Relevant to Health Maintenance Results * XR CERVICAL SPINE 4V (02/23/2025 5:41 PM EDT) Anatomical Region Laterality Modality Abdomen Radiographic Flor ging 02/23/2025 5:41 PM EDT Narrative 02/24/2025 8:51 AM EDT [address] [address] XRay Report Signed Patient: Favio Laureano MR#: [id number] : 1970 Acct:[id number] Age/Sex: 54 / M ADM Date: 02/23/25 Loc: HO.ED Attending Dr: Ordering Physician: Douglas Ward MD Date of Service: 02/23/25 Procedure(s): XR cervical spine 4V Accession Number(s): [id number] cc: Douglas Ward MD EXAMINATION: XR CERVICAL SPINE CLINICAL INFORMATION: cervical neck pain COMPARISON: None available. TECHNIQUE: AP, oblique, lateral and atlantoodontoid views. FINDINGS: Craniocervical junction is intact. Small marginal osteophyte formation anterior inferior endplate of C4, C5 with a limbus vertebra. No acute cortical disruption or malalignment. Mild neuroforamina narrowing at C3-4, bilaterally on a degenerative basis. No lytic or blastic lesions. Upper airway is patent. XR/XR cervical spine 4V IMPRESSION: Mild spondylosis C4-5 and C5-6. Electronically signed by: Jethro Harris MD 02/24/2025 08:48 AM EDT RP Dictated By: Jethro Tirado MD Signed By: <Electronically signed by Jethro Dye MD in OV> 02/24/25 0848 DD/ 1741 TD/TT: 02/23/25 1845 Inspector And Tester: Procedure Note Donotuseinterpreter, Image - 02/24/[address] [address] XRay Report Signed Patient: Favio Laureano DMR#: [id number] : 1970Acct:[id number] Age/Sex: 54 / MADM Date: 02/23/25 Loc: HO.ED Attending Dr: Ordering Physician: Douglas Ward MD Date of Service: 02/23/25 Procedure(s): XR cervical spine 4V Accession Number(s): [id number] cc: Douglas Ward MD EXAMINATION: XR CERVICAL SPINE CLINICAL INFORMATION: cervical neck pain COMPARISON: None available. TECHNIQUE: AP, oblique, lateral and atlantoodontoid views. FINDINGS: Craniocervical junction is intact. Small marginal osteophyte formation anterior inferior endplate of C4, C5 with a limbus vertebra. No acute cortical disruption or malalignment. Mild neuroforamina narrowing at C3-4, bilaterally on a degenerative basis. No lytic or blastic lesions. Upper airway is patent. XR/XR cervical spine 4V IMPRESSION: Mild spondylosis C4-5 and C5-6. Electronically signed by: Jethro Harris MD 02/24/2025 08:48 AM EDT RP Dictated By: Jethro Tirado MD Signed By: <Electronically signed by Jethro Dye MDin OV> 02/24/25 0848 DD/ 1741 TD/TT: 02/23/25 1845 Inspector And Tester: us Douglas Regan MD IMG XR PROCEDURES Final Result * Hepatitis C Antibody with Reflex to HCV, RNA, Quantitative, Real-Time PCR (09/02/2024 8:35 AM EST) Hepatitis C Antibody Nonreactive Nonreactive [facility] Comment:Antibodies to HCV no t detected; does not exclude early acuteHCV infection. Blood Venous blood specimen / Unknown 09/02/2024 8:35 AM EST 09/02/2024 2:05 PM EST us Douglas Regan MD LAB BLOOD ORDERABL ES Final Result [facility] [address] [place] [phone] * HIV-1/2 Antigen and Antibodies, Fourth Generation, with Reflexes (09/02/2024 8:35 AM EST) HIV AB/AG Nonreactive Nonreactive [facility] Comment:HIV-1 p24 Ag and/or HIV-1/HIV-2 Ab not detected.A test result that is nonreactive does not exclude thepossibility of exposure to or infection with HIV-1 and/orHIV-2. Nonreactive results in this assay for individualswith prior exposure to HIV-1 and/or HIV-2 may be due toantigen and antibody levels that are below the limit ofdetection of this assay.[employer] HIV Ag/Ab Combo assay result andsupplemental assay results should be interpreted inconjunction with the patient's clinical presentation,history and other laboratory results. If the results areinconsistent with clinical evidence, additional testing issuggested to confirm the result. Blood Venous blood specimen / Unknown 09/02/2024 8:35 AM EST 09/02/2024 2:05 PM EST us Douglas Regan MD LAB BLOOD ORDERABL ES Final Result [facility] [address] [place] [phone] * (ABNORMAL) Lipid Panel, Standard (09/02/2024 8:35 AM EST) Triglycerides 79 <150 mg/dL [facility] Comment:Desirable Triglyceri de: less than 150 mg/dLBorderline High Triglyceride 150-199 mg/dLHigh Triglyceride: 200-499 mg/dLVery High Triglyceride: greater than or equal to 5OO mg/dL Cholesterol 219(H) <200 mg/dL [facility] Comment:Desirable Cholestero l: less than 200 mg/dLBorderline High Cholesterol: 200-239 mg/dLHigh Cholesterol: greater than 239 mg/dL LDL Cholesterol Calculated 147(H) <100 mg/dL [facility] Comment:Desirable LDL: less than 100 mg/dLNear Optimal/Above Optimal LDL: 110- 129 mg/dLBorderline High LDL: 130-159 mg/dLHigh LDL: 160-189 mg/dLVery High LDL: greater than or equal to 190 mg/dL HDL Cholesterol 57 >40 mg/dL [facility] Comment:Desirable HDL: great er than 40 mg/dL Note: This HDL assay may give artificially low results in patients with liver disease. 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
== END 2025-02-23 20:06 | disposition left against medical advice (07) ==
LOC: HO.XRAY 20:05
PROVIDERS: PCP Internal Medicine; Visit Provider Internal Medicine
DX: M54.2 Cervicalgia (principal)
CPT/HCPCS: 72050